=== PATIENT | male | born 1990 | race Caucasian/White ===

== ENCOUNTER 2016-12-03 09:08 | Emergency (ER) | payer MEDICAID ==
[~2016-12-03] VITALS: Ht 188 cm; Wt 101.6 kg
[~2016-12-03 09:08] MED LIST: [UNRECOGNIZED DRUG - OTHER]
[2016-12-03 10:09] LABS: Basophils # (auto) 0 uL; Basophils % (auto) 0.2 % (0.0-2.0); CONDITION Y; Eosinophils # (auto) 0 uL; Eosinophils % (auto) 0.5 % (0.0-7.0); Lymphocytes # (auto) 0.9 uL; Lymphocytes % (auto) 10.5 % (10.0-50.0); Mean Corpuscular Hgb Conc. 34.1 g/dL (32.0-36.0); Mean Corpuscular Volume 87.7 fL (80.0-100.0); Mean Platelet Volume 9.4 fL (7.4-10.4); Monocytes # (auto) 0.8 uL; Monocytes % (auto) 9.4 % (0.0-12.0); Neutrophils % (auto) 79.4 % (37.0-80.0); Platelet Count (auto) 264 10^3/uL (140-450); Red Cell Distribution Width 13.7 % (11.6-16.0); White Blood Cell 8.8 10^3/uL (4.4-10.8)
[2016-12-03 10:15] LABS: Urine Bilirubin Negative (Negative); Urine Blood Negative /uL (Negative); Urine Color Yellow (Yellow); Urine Glucose Normal (Normal); Urine Ketone Negative (Negative); Urine Mucus FEW (None Seen); Urine Nitrite Negative (Negative); Urine RBC <1 /hpf (0 - 3); Urine Squamous Epithelial Cell FEW /hpf (<5)
[2016-12-03 10:32] LABS: Albumin 4.4 g/dL (3.4-5.0); BUN/Creatinine Ratio 16.3; Bilirubin, Total 1.1 mg/dL (0.2-1.0); Calcium 9.7 mg/dL (8.5-10.1); Total Protein 9.2 g/dL (6.4-8.2)
[2016-12-03 13:00] VITALS: BP 141/70
== END 2016-12-03 14:16 | disposition home or self-care (01) ==
LOC: ER 09:08
DX: N20.0 Calculus of kidney (principal); Z88.8 Allergy status to other drugs, medicaments and biological substances; M10.9 Gout, unspecified
CPT/HCPCS: 36415; 74176; 80053; 81001; 82150; 83690; 85025

== ENCOUNTER 2022-08-25 06:19 | Emergency (ER) | payer MEDICAID ==
[~2022-08-25] VITALS: Ht 188 cm; Wt 113.0 kg
[2022-08-25 06:43] VITALS: BP 153/92
[2022-08-25] MEDS ORDERED: KETOROLAC TROMETH 60MG/2ML VIAL IM ONE (07:00)
[2022-08-25] MEDS ORDERED: DexAMETHasone SOD PHOS 10MG/1ML VIAL INJ IM ONE (07:00)
[2022-08-25 07:21] LABS: Basophils # (auto) 0.1 10 ^3/uL (0-0.2); Eosinophils # (auto) 0.1 10 ^3/uL (0-0.8); Eosinophils % (auto) 1.2 % (0.0-7.0); Hematocrit 45.8 % (41.0-53.0); Hemoglobin 16.2 g/dL (13.5-17.5); Lymphocytes % (auto) 31.3 % (10.0-50.0); Mean Corpuscular Hemoglobin 30.5 pg (28.0-32.0); Mean Corpuscular Hgb Conc. 35.3 g/dL (32.0-36.0); Mean Corpuscular Volume 86.2 fL (80.0-100.0); Monocytes # (auto) 0.6 10 ^3/uL (0-1.3); Monocytes % (auto) 9.8 % (0.0-12.0); Neutrophils # (auto) 3.7 10 ^3/uL (1.6-8.6); Neutrophils % (auto) 56.7 % (37.0-80.0); Nucleated Red Blood Cells % 0.1 %; Red Blood Cells 5.31 10^6/uL (4.5-5.90); Red Cell Distribution Width 13.1 % (11.8-14.3); White Blood Cell 6.4 10^3/uL (4.4-10.8)
[2022-08-25 07:41] LABS: Albumin 4.1 g/dL (3.4-5.0); Potassium 3.9 mmol/L (3.5-5.1)
[2022-08-25 07:45] LABS: Bilirubin, Total 0.6 mg/dL (0.2-1.0); Total Protein 8.1 g/dL (6.4-8.2); Uric Acid 7.1 mg/dL (3.5-7.2)
[2022-08-25] MEDS ORDERED: COLCHICINE 0.6 MG CAP PO ONE (08:15)
[2022-08-25] MEDS ORDERED: COLC1TAB3 PO (08:15)
[2022-08-25] MEDS ORDERED: PRED20TA2 PO (08:36)
== END 2022-08-25 08:26 | disposition home or self-care (01) ==
LOC: ER 06:19
DX: M10.9 Gout, unspecified (principal); M79.674 Pain in right toe(s)
CPT/HCPCS: 36415; 80053; 84550; 85025; 96372; 99284; J1100; J1885

== ENCOUNTER 2022-11-09 01:31 | Emergency (ER) | payer MEDICAID ==
[~2022-11-09] VITALS: Ht 188 cm; Wt 113.6 kg
[~2022-11-09 01:31] MED LIST changes: +COLC1TAB3 PO; +PRED20TA2 PO
[2022-11-09] MEDS ORDERED: COLC1CAP PO (02:43)
[2022-11-09] MEDS ORDERED: HYDR-4902 PO (02:43)
[2022-11-09] MEDS ORDERED: PRED20TA2 PO (02:43)
[2022-11-09] MEDS ORDERED: DexAMETHasone SOD PHOS 10MG/1ML VIAL INJ IM ONE (02:45)
[2022-11-09] MEDS ORDERED: HYDROcodone-ACET 7.5/325MG TAB PO ONE (02:45)
[2022-11-09 03:27] VITALS: BP 133/79; PULSE 66; RESP 18; TEMP 98; O2SAT 98
== END 2022-11-09 03:29 | disposition home or self-care (01) ==
LOC: ER 01:33
DX: M10.9 Gout, unspecified (principal); Z76.0 Encounter for issue of repeat prescription; Z79.899 Other long term (current) drug therapy
CPT/HCPCS: 96372; 99283; J1100